=== PATIENT | male | born 2000 | race Caucasian/White ===

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

== ENCOUNTER 2018-01-08 21:31 | Emergency (ER) | payer SELFPAY ==
[~2018-01-08] VITALS: Ht 182.9 cm; Wt 70.4 kg
[2018-01-08 22:53] LABS: HEMATOCRIT 38.6 % (38.0-50.0); HEMOGLOBIN 14.1 G/DL (12.5-16.6); MCH 30.3 PG (29.0-34.0); MCHC 36.5 G/DL (30.0-36.0); MCV 82.8 FL (86-99); PLATELET COUNT 317 K/uL (156-360); RBC DIS.WIDTH-CV 11.9 % (11.8-14.6); RBC DIS.WIDTH-SD 36.1 % (39-53); RED BLOOD COUNT 4.66 M/uL (4.00-5.50); WHITE BLOOD COUNT 12.6 K/uL (4.1-10.2)
[2018-01-08 23:03] LABS: ALBUMIN 5.1 g/dL (3.2-4.8); CHLORIDE 105 mEq/L (99-109); POTASSIUM 3.3 mEq/L (3.7-5.4); SODIUM 140 mEq/L (136-147)
[2018-01-08 23:05] LABS: GLUCOSE 137 mg/dL (70-99)
[2018-01-08 23:09] LABS: ALKALINE PHOSPHATASE 43 IU/L (3-129); CREATININE 0.9 mg/dL (0.6-1.3); GFR ESTIMATE (CALCULATED) > 59 mL/min/ (58.99-99999)
[2018-01-08 23:10] LABS: UREA NITROGEN (BUN) 13 mg/dL (9-23)
[2018-01-08 23:11] LABS: AST (GOT) 14 IU/L (2-34)
[2018-01-08 23:12] LABS: ALT (GPT) 16 IU/L (3-49)
[2018-01-09 00:26] LABS: APPEARANCE CLEAR ((CLEAR)); BILIRUBIN NEGATIVE; BLOOD NEGATIVE; COLOR YELLOW ((YELLOW)); GLUCOSE (STRIP) 50; KETONES 80; LEUKOCYTES NEGATIVE; NITRITE NEGATIVE; PROTEIN (STRIP) 100; UROBILINOGEN 0.2 MG/DL (0.2-1.0)
[2018-01-09 00:30] LABS: BACTERIA NONE SEEN /HPF; EPITHELIAL CELLS NONE SEEN /HPF; MUCUS 4+ /LPF; RED BLOOD CELLS 0-5 /HPF (0-5); UCUL ADDED? NO; WHITE BLOOD CELLS 0-5 /HPF (0-5)
[2018-01-09 00:38] LABS: AMPHETAMINE NEGATIVE (500 ng/mL); BARBITURATES NEGATIVE (200 ng/mL); BENZODIAZEPINES NEGATIVE (150 ng/mL); BUPRENORPHINE NEGATIVE (10 ng/mL); COCAINE NEGATIVE (150 ng/mL); METHADONE NEGATIVE (200 ng/mL); METHAMPHETAMINE NEGATIVE (500 ng/mL); OPIATES (MORPHINE) NEGATIVE (100 ng/mL); OXYCODONE NEGATIVE (100 ng/mL); PHENCYCLIDINE NEGATIVE (25 ng/mL); PROPOXYPHENE NEGATIVE (300 ng/mL); THC CANNABINOIDS PRESUMPTIVE POSITIVE (50 ng/mL); TRICYCLIC ANTIDEPRESSANTS NEGATIVE (300 ng/mL)
[2018-01-09 01:39] LABS: DIRECT BILIRUBIN 0.3 mg/dL (0.0-0.3)
[2018-01-09] MEDS ORDERED: REGLAN5 MG PO (02:53)
[2018-01-09 02:57] LABS: LIPASE 6 U/L (1.0-51.0)
[2018-01-09 04:13] VITALS: BP 131/69
== END 2018-01-09 04:14 | disposition home or self-care (01) ==
LOC: EME 21:31
PROVIDERS: Physician Assistant Medical
DX: R11.2 Nausea with vomiting, unspecified (principal); F12.10 Cannabis abuse, uncomplicated; F17.200 Nicotine dependence, unspecified, uncomplicated; F41.9 Anxiety disorder, unspecified
CPT/HCPCS: 74018; 80053; 81003; 82248; 83690; 84999; 85027; 99281; 99284; J1630; J2765; J7030; S0028

== ENCOUNTER 2018-01-11 17:37 | Emergency (ER) | payer SELFPAY ==
[~2018-01-11] VITALS: Ht 185.4 cm; Wt 68.9 kg
[~2018-01-11 17:37] MED LIST changes: +REGLAN5 MG PO
[2018-01-11 18:33] LABS: BASOPHIL (%) 0.2 % (0-1); EOSINOPHIL (%) 0.2 % (0-5); HEMATOCRIT 38.2 % (38.0-50.0); HEMOGLOBIN 13.9 G/DL (12.5-16.6); IMMATURE GRANULOCYTE (%) 0.1 % (0.0-0.7); LYMPHOCYTE (%) 17.1 % (15-42); LYMPHOCYTE COUNT 1.5 K/uL (1.0-2.8); MCH 29.6 PG (29.0-34.0); MCHC 36.4 G/DL (30.0-36.0); MCV 81.3 FL (86-99); MONOCYTE (%) 4.6 % (3-12); MONOCYTE COUNT 0.4 K/uL (0-0.8); NEUTROPHIL (%) 77.8 % (45-76); NEUTROPHIL COUNT 6.7 K/uL (1.8-6.4); PLATELET COUNT 351 K/uL (156-360); RBC DIS.WIDTH-CV 11.8 % (11.8-14.6); RBC DIS.WIDTH-SD 34.5 % (39-53); WHITE BLOOD COUNT 8.6 K/uL (4.1-10.2)
[2018-01-11 18:43] LABS: APPEARANCE SL.HAZY ((CLEAR)); BILIRUBIN NEGATIVE; BLOOD NEGATIVE; COLOR YELLOW ((YELLOW)); GLUCOSE (STRIP) NEGATIVE; KETONES 80; LEUKOCYTES NEGATIVE; NITRITE NEGATIVE; PROTEIN (STRIP) NEGATIVE; SPECIFIC GRAVITY 1.019 (1.000-1.030)
[2018-01-11 18:47] LABS: CHLORIDE 104 mEq/L (99-109)
[2018-01-11 18:48] LABS: BACTERIA NONE SEEN /HPF; EPITHELIAL CELLS NONE SEEN /HPF; MUCUS 2+ /LPF; RED BLOOD CELLS 0-5 /HPF (0-5); WHITE BLOOD CELLS 0-5 /HPF (0-5)
[2018-01-11 18:48] LABS: SODIUM 139 mEq/L (136-147)
[2018-01-11 18:50] LABS: GLUCOSE 110 mg/dL (70-99); TOTAL PROTEIN 8.1 g/dL (6.4-8.3)
[2018-01-11 18:52] LABS: AMPHETAMINE NEGATIVE (500 ng/mL); BARBITURATES NEGATIVE (200 ng/mL); BENZODIAZEPINES NEGATIVE (150 ng/mL); BUPRENORPHINE NEGATIVE (10 ng/mL); COCAINE NEGATIVE (150 ng/mL); METHADONE NEGATIVE (200 ng/mL); METHAMPHETAMINE NEGATIVE (500 ng/mL); OPIATES (MORPHINE) NEGATIVE (100 ng/mL); OXYCODONE NEGATIVE (100 ng/mL); PHENCYCLIDINE NEGATIVE (25 ng/mL); PROPOXYPHENE NEGATIVE (300 ng/mL); THC CANNABINOIDS PRESUMPTIVE POSITIVE (50 ng/mL); TRICYCLIC ANTIDEPRESSANTS NEGATIVE (300 ng/mL)
[2018-01-11 18:53] LABS: ALKALINE PHOSPHATASE 45 IU/L (3-129)
[2018-01-11 18:54] LABS: CREATININE 0.9 mg/dL (0.6-1.3); GFR ESTIMATE (CALCULATED) > 59 mL/min/ (58.99-99999)
[2018-01-11 18:55] LABS: AST (GOT) 15 IU/L (2-34); DIRECT BILIRUBIN 0.7 mg/dL (0.0-0.3); UREA NITROGEN (BUN) 10 mg/dL (9-23)
[2018-01-11 18:56] LABS: ALT (GPT) 14 IU/L (3-49)
[2018-01-11 18:59] LABS: TOTAL BILIRUBIN 2.7 mg/dL (0.0-1.0)
[2018-01-11 19:26] LABS: LIPASE 6 U/L (1.0-51.0)
[2018-01-11] MEDS ORDERED: BENTYL20 MG PO (20:23)
[2018-01-11] MEDS ORDERED: CAPSAICIN57 GM TP (20:23)
[2018-01-11] MEDS ORDERED: PROMETHAZINE HC25 M1 PO (20:23)
[2018-01-11] MEDS ORDERED: PHENERGAN25 MG PR (20:23)
[2018-01-11 20:54] VITALS: BP 121/81
== END 2018-01-11 21:22 | disposition home or self-care (01) ==
LOC: EME 17:37
PROVIDERS: Physician Assistant
DX: F12.188 Cannabis abuse with other cannabis-induced disorder (principal); R11.2 Nausea with vomiting, unspecified; R19.7 Diarrhea, unspecified; R10.9 Unspecified abdominal pain; E87.6 Hypokalemia
CPT/HCPCS: 80048; 80076; 81003; 83690; 84999; 85025; 87493; 87506; 99281; 99284; J0500; J1200; J2550; J2765; J7030; Q0169